=== PATIENT | female | born 1970 | race Caucasian/White ===

== ENCOUNTER → 2016-03-29 | Outpatient (CLI) | payer OTHER ==
[~2016-03-29] MED LIST: ACET-1256 PO; BLAC1TAB PO; FLUO10CA48 PO; FLUO20CA35 PO; MECL1TAB42 PO; OMEP20TA PO; TGR100 PO; TOPI200T14 PO
--- NOTE | 2016-03-29 15:09 | DIAGNOSTIC IMAGING REPORT ---
BILIARY ULTRASOUND CLINICAL HISTORY: Right upper quadrant abdominal pain COMPARISON STUDY: 01/06/2016 FINDINGS: The pancreas appears sonographically normal. The liver appears sonographically normal. The gallbladder appears sonographically normal. There is no ductal dilatation. The common bile duct measures 5 mm. There is no right-sided hydronephrosis. There is lower pole right renal scarring. There is cortical thinning involving the lower pole the right kidney. IMPRESSION: 1. Ultrasonographically normal gallbladder pancreas and liver 2. Right renal cortical scarring and cortical thinning Electronically signed by: Javi Kern M.D. 03/29/2016 3:07 PM
== END | disposition home or self-care (01) ==
LOC: C.ULTR 14:35
PROVIDERS: ATTEND Family Medicine
DX: R10.11 Right upper quadrant pain (principal)

== ENCOUNTER → 2016-08-16 | Outpatient (CLI) | payer OTHER ==
--- NOTE | 2016-08-16 15:09 | DIAGNOSTIC IMAGING REPORT ---
LEFT KNEE 1 OR 2 VIEWS ROUTINE CLINICAL HISTORY: Bilateral knee pain. COMPARISON: Left knee radiograph December 03, 2008. FINDINGS: Alignment of left knee is anatomic. Joint spaces are preserved. There is no fracture or joint effusion. IMPRESSION: Unremarkable left knee radiographs. Electronically signed by: Apollo Mcneal M.D. 08/16/2016 3:08 PM Dictated Date/Time: 08/16/2016 3:07 PM
--- NOTE | 2016-08-16 15:24 | DIAGNOSTIC IMAGING REPORT ---
RIGHT KNEE 2 VIEWS CLINICAL HISTORY: Right knee pain. FINDINGS: AP and lateral views of the right knee are obtained. No prior studies are available for comparison at the time of dictation. The skeletal structures are well mineralized. No fracture is seen. There is mild narrowing at the patellofemoral articulation. The medial and lateral joint spaces are preserved. There is a superior patellar enthesophyte. No large joint effusion is identified. The overlying soft tissues are within normal limits. IMPRESSION: No acute bony abnormality is seen in the right knee. Electronically signed by: Vince Sanchez M.D. 08/16/2016 3:22 PM Dictated Date/Time: 08/16/2016 3:21 PM
--- NOTE | 2016-08-16 15:31 | DIAGNOSTIC IMAGING REPORT ---
RIGHT HIP UNILATERAL 2 VIEWS, LEFT HIP UNILATERAL 2 VIEWS CLINICAL HISTORY: M15.9, M25.561, M25.559 Right COMPARISON STUDY: None. FINDINGS: No fracture or dislocation within the right or left hip. The pelvic bones are intact. Soft tissues are within normal limits. Cartilage spaces are maintained for age. IMPRESSION: Unremarkable bilateral hips. Electronically signed by: Joon Amin M.D. 08/16/2016 3:30 PM Dictated Date/Time: 08/16/2016 3:20 PM
== END | disposition home or self-care (01) ==
LOC: C.RAD1850 14:43
PROVIDERS: ATTEND Nurse Practitioner Family
DX: M15.9 Polyosteoarthritis, unspecified (principal); M25.561 Pain in right knee; M25.559 Pain in unspecified hip

== ENCOUNTER 2016-10-11 12:05 | Emergency (ER) | payer OTHER ==
[~2016-10-11] VITALS: Ht 170.2 cm; Wt 73.4 kg
[~2016-10-11 12:05] MED LIST changes: -FLUO10CA48 PO; -TGR100 PO
[2016-10-11 12:07] VITALS: TEMP 36.7; Ht 170.2 cm; Wt 73.4 kg
[2016-10-11 12:44] LABS: HEMATOCRIT 42.1 % (37-47); MEAN CELL VOLUME 94.2 fL (80-100); MEAN CORPUSCULAR HEMOGLOBIN 31.1 pg (25-34); MEAN PLATELET VOLUME 9.3 fL (7.4-10.4); PLATELET COUNT 350 K/uL (130-400); RED BLOOD COUNT 4.47 M/uL (4.2-5.4); WHITE BLOOD COUNT 9.29 K/uL (4.8-10.8)
[2016-10-11] MEDS ORDERED: FLUO10CA48 PO (13:04)
[2016-10-11] MEDS ORDERED: TGR100 PO (13:06)
[2016-10-11 13:09] LABS: BUN/CREATININE RATIO 11.5 (10-20); CALCIUM 9.2 mg/dl (8.5-10.1); POTASSIUM 3.9 mmol/L (3.5-5.1)
[2016-10-11 13:12] LABS: ALB/GLOB RATIO 1.2 (0.9-2)
--- NOTE | 2016-10-11 13:46 | EMERGENCY ROOM VISIT NOTE ---
History Report prepared by Jalen: Darnell Tillman Under the Supervision of: Dr. Frederick Matthew M.D. First contact with patient: 12:11 Chief Complaint: SWELLING TO EXTREMITY Stated Complaint: SWELLING/SORE LEGS-VEINS POPPING OUT History of Present Illness The patient is a 46 year old female who presents to the Emergency Room with complaints of worsening bilateral lower extremity swelling starting about 2 months ago. The patient initially had right leg swelling but she also started having swelling in her left leg this morning. She describes the swelling as "veins popping out" of her legs. She describes the veins popping out intermittently from her knees down. She reports bilateral ankle and knee pain. This morning, she found 3 lumps on her left leg which have now resolved. The patient has been evaluated by her PCP twice for her current symptoms. She has received a negative X-ray of her legs and negative Lyme test. She also complains of upper abdominal pain. She has constant diarrhea which occurs soon after eating. The patient has a history of total hysterectomy but denies any history of any other abdominal surgeries. She denies fevers, chills, or any other complaints. Source of History: patient Onset: about 2 months ago Position: other (bilateral lower extremities) Quality: other ("veins popping out") Timing: worsening Associated Symptoms: + abdominal pain, + diarrhea, No fevers, No chills Review of Systems All systems have been listed, reviewed, and are negative other than those previously mentioned. Please see Additional Medical History Sheet. Past Medical & Surgical Surgical Problems: (1) H/O sinus surgery (2) H/O: hysterectomy Family History Cancer Gallbladder disease Heart disease Social History Smoking Status: Current Every Day Smoker Marital Status: single Occupation Status: disabled Current/Historical Medications Scheduled Black Cohosh (Cimicifuga Racem (Black Cohosh), 1 TAB PO QAM Carbamazepine (Carbamazepine), 100 MG PO BID Fluoxetine (Prozac), 20 MG PO QAM Fluoxetine (Prozac), 10 MG PO QAM Topiramate (Topamax), 200 MG PO QAM Scheduled PRN Meclizine Hcl (Meclizine Hcl), 1 TAB PO TID PRN for Dizziness or Vertigo Omeprazole (Omeprazole), 1 TAB PO HS PRN for Indigestion Allergies Coded Allergies: Lamotrigine (Verified Allergy, Severe, RASH AND CRAMPING, 10/11/16) [place] (Verified Allergy, Unknown, "Rash and cramping", 10/11/16) Valproic Acid (Verified Allergy, Unknown, STOMACH CRAMPS, 10/11/16) Physical Exam Vital Signs Date Time Temp Pulse Resp B/P (MAP) Pulse Ox O2 Delivery O2 Flow Rate FiO2 10/11/16 14:25 77 18 141/85 99 10/11/16 12:07 36.7 79 18 141/85 99 Room Air Physical Exam GENERAL: Patient awake, alert, oriented x 3. Patient follows commands. Patient does not appear toxic. Patient is adequately hydrated and well- nourished. SKIN: No erythema, pallor, cyanosis or rash HEENT: Normal head, pupils equal, reactive to light and accommodation. LUNGS: Clear to auscultation. No wheezes, no rales, no rhonchi. HEART: No murmurs. No gallops. No rubs ABDOMEN: No masses, no rebound, no hepatomegaly or splenomegaly. EXTREMITIES: No signs of trauma. No pedal or pretibial edema. No calf or thigh tenderness. NEUROLOGIC: Cranial nerves II-XII within normal limits. No gross motor sensory function deficits. Medical Decision & Procedures Laboratory Results 10/11/16 12:25 10/11/16 12:25 Test 10/11/16 12:25 Red Blood Count 4.47 M/uL (4.2-5.4) Mean Corpuscular Volume 94.2 fL (80-100) Mean Corpuscular Hemoglobin 31.1 pg (25-34) Mean Corpuscular Hemoglobin Concent 33.0 g/dl (32-36) RDW Standard Deviation 43.0 fL (36.4-46.3) RDW Coefficient of Variation 12.5 % (11.5-14.5) Mean Platelet Volume 9.3 fL (7.4-10.4) Anion Gap 6.0 mmol/L (3-11) Est Creatinine Clear Calc Drug Dose 66.9 ml/min Estimated GFR () 77.2 Estimated GFR (Non- 66.6 BUN/Creatinine Ratio 11.5 (10-20) Calcium Level 9.2 mg/dl (8.5-10.1) Total Bilirubin 0.2 mg/dl (0.2-1) Aspartate Amino Transf (AST/SGOT) 12 U/L (15-37) Alanine Aminotransferase (ALT/SGPT) 18 U/L (12-78) Alkaline Phosphatase 131 U/L (45-117) Total Protein 7.8 gm/dl (6.4-8.2) Albumin 4.2 gm/dl (3.4-5.0) Globulin 3.6 gm/dl (2.5-4.0) Albumin/Globulin Ratio 1.2 (0.9-2) Lyme Disease IgG Antibody NEG (NEG) Lyme Disease IgM Antibody NEG (NEG) Laboratory results as stated above per my review. ED Course 1211: Past medical records reviewed. The patient was evaluated in room A02. A complete history and physical examination was performed. 1340: Upon reevaluation, the patient is resting comfortably. I discussed today' s findings with her. She verbalized agreement of the treatment plan. She was discharged home. Medical Decision Medication Reconciliation: I attest that I have personally reviewed the patient' s current medication list. Blood Pressure Screening: Patient was found to have an elevated blood pressure and was referred to their primary doctor for recheck and further treatment. Differential diagnosis includes but is not limited to DVT, cellulitis, bacterial versus viral infection, lyme's disease. Multiple labs were obtained. Please see above. The patient does not have any signs of infection or electrolyte imbalance. Clinically she does not have any signs of a DVT or cellulitis. I do not see any varicosities. She has very minimal peripheral edema and I do not believe she needs a diuretic. The patient is safe to return home. The patient was encouraged to continue her current medications and follow-up with her family physician to make sure that she is feeling well and to recheck her blood pressure. Impression Primary Impression: Peripheral edema Scribe Attestation The scribe's documentation has been prepared under my direction and personally reviewed by me in its entirety. I confirm that the note above accurately reflects all work, treatment, procedures, and medical decision making performed by me. Departure Information Dispostion Home / Self-Care Referrals Raffy Lobo MD (PCP) Forms HOME CARE DOCUMENTATION FORM, IMPORTANT VISIT INFORMATION, WORK / SCHOOL INSTRUCTIONS Patient Instructions My [facility] Additional Instructions Continue your current medications as prescribed. Follow-up with your family physician and have your blood pressure rechecked.
[2016-10-11 13:55] LABS: LYME DISEASE AB IGG NEG (NEG)
[2016-10-11 13:57] LABS: LYME DISEASE AB IGM NEG (NEG)
[2016-10-11 14:25] VITALS: BP 141/85; PULSE 77; O2SAT 99
== END 2016-10-11 14:26 | disposition home or self-care (01) ==
LOC: C.EDB 12:06 → C.EDA 14:26
DX: R60.9 Edema, unspecified (principal); Z82.49 Family history of ischemic heart disease and other diseases of the circulatory system; F17.200 Nicotine dependence, unspecified, uncomplicated

== ENCOUNTER → 2017-08-15 | Day surgery (SDC) | payer OTHER ==
[2017-08-03 08:05] VITALS: Ht 170.2 cm; Wt 77.3 kg
[~2017-08-15] VITALS: Ht 170.2 cm; Wt 77.3 kg
[~2017-08-15] MED LIST changes: -ACET-1256 PO; +ATV/1 PO; -BLAC1TAB PO; +BUPIVACAINE 0.25% 2.5MG/ML PF 10 ML VIAL ONE; +CARB200T PO; +FEXO1TAB58 PO; +FLUT0.15 NAE; +IOPAMIDOL INJ 61% 15 ML VIAL ONE; -MECL1TAB42 PO; -OMEP20TA PO; +RANI150T85 PO; +SALI0.6515 NAE; +TEMA15CA4 PO; +TOPI100T34 PO; -TOPI200T14 PO; +VNTHFA/IN INH
--- NOTE | 2017-08-15 14:14 | History & Physical Bridge - SC ---
H&P Re-Evaluation Bridge Note: I have examined the patient, reviewed the History & Physical and in the interval since the performance of the History & Physical I have noted the following changes of clinical significance: No changes noted
[2017-08-15] MEDS: LIDOCAINE HCL 1% MPF 5 ML VIAL ONE ×2 (14:23→14:26)
--- NOTE | 2017-08-15 14:29 | [facility] Post Operative Brief Note ---
Immediate Operative Summary Operative Date August 15, 2017. Pre-Operative Diagnosis Left sacroiliitis Post-Operative Diagnosis same Procedure(s) Performed Left Sacroiliitis Joint Injection Surgeon Dr Yang Moody Lockstitch Hemmer Surgeon(s) None Estimated Blood Loss 0 Findings Consistent with Post-Op Diagnosis Specimens NA Drains None Anesthesia Type Local Disposition Disposition:
--- NOTE | 2017-08-15 14:30 | Discharge Instructions ---
Discharge Instructions Date of Service August 15, 2017. Visit Reason for Visit: Sacroiliitis Discharge Discharge Diagnosis / Problem: Low back pain Discharge Goals Goal(s): Decrease discomfort, Improve function Activity Recommendations Activity Limitations: resume your previous activity Anesthesia . Post Anesthesia Instructions: If you have had General Anesthesia or IV Sedation: * Do not drive today. * Resume driving when surgeon permits. * Do not make important decisions or sign legal documents today. * Call surgeon for: 1. Temperature elevations greater than 101 degrees F. 2. Uncontrollable pain. 3. Excessive bleeding. 4. Persistent nausea and vomiting. 5. Medication intolerance (nausea, vomiting or rash). * For nausea and vomiting use only clear liquids such as: tea, soda, bouillon until nausea subsides, then gradually increase diet as tolerated. * If you have any concerns or questions, call your surgeon's office. If physician is unavailable and it is an emergency, call 911 or go to the nearest emergency room. . Diet Recommendations Recommended Home Diet: resume previous diet Procedures Procedures Performed: Left Sacroiliitis Joint Injection Pending Studies Studies pending at discharge: no Medical Emergencies . Who to Call and When: Medical Emergencies: If at any time you feel your situation is an emergency, please call 911 immediately. . Non-Emergent Contact Non-Emergency issues call your: Specialist . . "Provider Documentation" section prepared by Yang Moody. .
[2017-08-15 14:31] VITALS: TEMP 36.3
[2017-08-15 14:53] VITALS: BP 122/80; PULSE 72; O2SAT 100
--- NOTE | 2017-08-15 17:20 | OPERATIVE REPORT ---
DATE OF OPERATION: 08/15/2017 PREOPERATIVE DIAGNOSIS: Left sacroiliitis, underlying irritable bowel disease. POSTOPERATIVE DIAGNOSIS: Left sacroiliitis, underlying irritable bowel disease. PROCEDURE: Left sacroiliac joint injection under fluoroscopic guidance. INDICATIONS: The patient is a 47-year-old white female who presents today with a 1 year history of low back pain. She really localizes to 1 finger in the left SI area and her examination and history were consistent with sacroiliac cause. PHYSICAL EXAMINATION: Pleasant female, seated comfortably. She has point tenderness to palpation of her left SI joint, worse with extension. No problems with flexion. She has a negative seated straight leg raise and negative Lucía maneuver on the left, positive sacral distraction maneuver with compression maneuver. CONSENT: Verbal and written consent was obtained from the patient. Risks and benefits were reviewed. Risks include but are not limited to epidural abscess, epidural hematoma, allergic reaction, dural puncture. The patient wishes to proceed. DESCRIPTION OF PROCEDURE: The patient was taken back to the special procedures room of [facility]. She was maintained in a prone position. Backside was cleansed with Betadine x3 and a dry sterile dressing was applied. Fluoroscope was used to identify the left SI joint and the overlying skin was anesthetized with 3 mL of lidocaine 1% with a 25 gauge 1.5-inch needle. A 25 gauge 3.5 inch spinal needle was then directed under fluoroscopic guidance into the joint. There was discomfort when it entered the joint. Isovue-300 contrast 0.25 mL demonstrated to be intra-articular. She then underwent injection after negative aspiration of 40 mg of Depo-Medrol and 1.5 mL of bupivacaine 0.25%. Injection was well tolerated. DISPOSITION: 1. The patient is taken out into the discharge recovery area where she will be discharged home once discharge criteria have been met. 2. Follow up in the [facility] office in 4 weeks' time. I attest to the content of the Intraoperative Record and any orders documented therein. Any exception s are noted below.
== END | disposition home or self-care (01) ==
LOC: X.SURG 13:13
PROVIDERS: ATTEND Physical Medicine & Rehabilitation
DX: M46.1 Sacroiliitis, not elsewhere classified (principal); K58.9 Irritable bowel syndrome, unspecified; F41.9 Anxiety disorder, unspecified; Z88.1 Allergy status to other antibiotic agents; Z79.899 Other long term (current) drug therapy; Z80.3 Family history of malignant neoplasm of breast; Z82.49 Family history of ischemic heart disease and other diseases of the circulatory system; Z80.41 Family history of malignant neoplasm of ovary; Z80.8 Family history of malignant neoplasm of other organs or systems